=== PATIENT | female | born 1975 | race Caucasian/White ===

== ENCOUNTER 2016-06-03 17:24 | Emergency (ER) | payer OTHER ==
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
[~2016-06-03 17:24] MED LIST: ACYCLOVIR400 MG PO; ALBUTEROL17 G1 IH; ALBUTEROL17 GM INH; BACTRIM DS TABL1 TA1 PO; BACTROBAN22 GM TOP; CLEOCIN HCL300 M1 PO; DEPO-PROVER150 MG/ML; FLEXERIL10 MG PO; IBUPROFEN PO; IBUPROFEN800 MG PO; KEFLEX500 MG; LORTAB 10-5001 EACH PO; METHADONE PO; NO MEDICATIONS; PEN-VEE K PO; PERCOCET 10/3251 TAB PO; PREDNISONE PO; TOBRADEX EYE DRO5 ML OP; TYLENOL #3 PO; VIBRAMYCIN100 M1 DOB; VICODIN 5/500 T1 TAB PO
== END 2016-06-03 21:11 | disposition home or self-care (01) ==
LOC: SED 17:24
DX: S22.080D Wedge compression fracture of T11-T12 vertebra, subsequent encounter for fracture with routine healing (principal); S32.019D Unspecified fracture of first lumbar vertebra, subsequent encounter for fracture with routine healing; J45.909 Unspecified asthma, uncomplicated; Z88.5 Allergy status to narcotic agent; V43.62XD Car passenger injured in collision with other type car in traffic accident, subsequent encounter; Y92.410 Unspecified street and highway as the place of occurrence of the external cause
CPT/HCPCS: 72072; 72100; 99283; 99284